=== PATIENT | male | born 1970 | race Caucasian/White ===

== ENCOUNTER 2022-06-17 18:19 | Emergency (ER) | payer SELFPAY ==
[2022-06-17] MEDS ORDERED: LACTATED RINGERS 1,000 ML IV STA (18:39)
--- NOTE | 2022-06-17 18:39 | ED General ---
General Stated Complaint: HEAD FOG,AMS History of Present Illness Date Seen by Provider: Jun 17, 2022 Time Seen by Provider: 18:39 Initial Comments 52-year-old male presents with what he is describing as "brain fog" patient reports that him and his son were driving home to [facility] from [facility]. They report that they left at their around 5 AM this morning and been driving all day. While he was driving he just "does not feel right" but cannot describe it more than just feels kind of brain foggy and fatigued. Heather ent denies any focal deficits. Patient denies any numbness tingling headache chest pain, shortness of breath, fever, chills, nausea, vomiting or any other systemic complaints other than he just kind of feels funny. He reports that he may just be overly tired with is concerned and wanted to be evaluated. Allergies and Home Medications Allergies Coded Allergies: No Known Drug Allergies (Unverified , 06/17/22) Patient Home Medication List Home Medication List Reviewed: Yes Review of Systems Review of Systems Constitutional: No chills, No dizziness, No fever; malaise, weakness EENTM: no symptoms reported; No ear pain Respiratory: No cough, No short of breath Cardiovascular: No chest pain, No palpitations Gastrointestinal: No abdominal pain, No diarrhea, No nausea, No vomiting Genitourinary: no symptoms reported Musculoskeletal: no symptoms reported Skin: no symptoms reported Psychiatric/Neurological: See HPI Hematologic/Lymphatic: No Symptoms Reported Immunological/Allergic: no symptoms reported Physical Exam Vital Signs Vital Signs - First Documented 06/17/22 18:34 Temp 37.0 Pulse 78 Resp 18 B/P (MAP) 147/89 (108) Pulse Ox 97 O2 Delivery Room Air Capillary Refill : Height, Weight, BMI Height: '" Weight: lbs. oz. 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 as Tested; No Abnormal Gait Skin: Normal Color, Warm/Dry Progress/Results/Core Measures Suspected Sepsis SIRS Temperature: Pulse: Respiratory Rate: Laboratory Tests 06/17/22 18:39: White Blood Count 11.2H Blood Pressure / Mean: Laboratory Tests 06/17/22 18:39: Creatinine 0.97, Platelet Count 266, Total Bilirubin < 0.2 Results/Orders Lab Results Laboratory Tests Test 06/17/22 18:37 06/17/22 18:39 06/17/22 18:47 06/17/22 19:20 Range/Units Glucometer 101 70-110 MG/DL White Blood Count 11.2 H 4.3-11.0 10^3/uL Red Blood Count 5.40 4.30-5.52 10^6/uL Hemoglobin 16.0 13.3-17.7 g/dL Hematocrit 46 40-54 % Mean Corpuscular Volume 86 80-99 fL Mean Corpuscular Hemoglobin 30 25-34 pg Mean Corpuscular Hemoglobin Concent 35 32-36 g/dL Red Cell Distribution Width 13.5 10.0-14.5 % Platelet Count 266 130-400 10^3/uL Mean Platelet Volume 9.1 9.0-12.2 fL Immature Granulocyte % (Auto) 0 % Neutrophils (%) (Auto) 62 42-75 % Lymphocytes (%) (Auto) 27 12-44 % Monocytes (%) (Auto) 6 0-12 % Eosinophils (%) (Auto) 4 0-10 % Basophils (%) (Auto) 0 0-10 % Neutrophils # (Auto) 7.0 1.8-7.8 10^3/uL Lymphocytes # (Auto) 3.1 1.0-4.0 10^3/uL Monocytes # (Auto) 0.7 0.0-1.0 10^3/uL Eosinophils # (Auto) 0.4 H 0.0-0.3 10^3/uL Basophils # (Auto) 0.1 0.0-0.1 10^3/uL Immature Granulocyte # (Auto) 0.1 0.0-0.1 10^3/uL Sodium Level 140 135-145 MMOL/L Potassium Level 5.9 H 3.6-5.0 MMOL/L Chloride Level 106 98-107 MMOL/L Carbon Dioxide Level 24 21-32 MMOL/L Anion Gap 10 5-14 MMOL/L Blood Urea Nitrogen 16 7-18 MG/DL Creatinine 0.97 0.60-1.30 MG/DL Estimat Glomerular Filtration Rate 95 BUN/Creatinine Ratio 16 Glucose Level 110 H 70-105 MG/DL Calcium Level 9.2 8.5-10.1 MG/DL Corrected Calcium 9.0 8.5-10.1 MG/DL Total Bilirubin < 0.2 0.1-1.0 MG/DL Aspartate Amino Transf (AST/SGOT) 33 5-34 U/L Alanine Aminotransferase (ALT/SGPT) 22 0-55 U/L Alkaline Phosphatase 81 40-136 U/L Troponin I < 0.30 <0.30 NG/ML C-Reactive Protein < 0.30 <0.50 MG/DL Total Protein 7.4 6.4-8.2 GM/DL Albumin 4.3 3.2-4.5 GM/DL SARS-CoV-2 RNA (RT-PCR) Not Detected Not Detecte Urine Color YELLOW Urine Clarity SLIGHTLY CLOUDY Urine pH 7.0 5-9 Urine Specific [place] 1.025 H 1.016-1.022 Urine Protein NEGATIVE NEGATIVE Urine Glucose (UA) NEGATIVE NEGATIVE Urine Ketones NEGATIVE NEGATIVE Urine Nitrite NEGATIVE NEGATIVE Urine Bilirubin NEGATIVE NEGATIVE Urine Urobilinogen 0.2 < = 1.0 MG/DL Urine Leukocyte Esterase NEGATIVE NEGATIVE Urine RBC (Auto) NEGATIVE NEGATIVE Urine RBC NONE /HPF Urine WBC 0-2 /HPF Urine Squamous Epithelial Cells NONE /HPF Urine Crystals NONE /LPF Urine Bacteria LARGE H /HPF Urine Casts NONE /LPF Urine Mucus LARGE H /LPF Urine Culture Indicated YES My Orders Orders - HWANG,JUAN L DO Cbc With Automated Diff (06/17/22 18:39) Comprehensive Metabolic Panel (06/17/22 18:39) Ua Culture If Indicated (06/17/22 18:39) Crp Fs (06/17/22 18:39) Troponin I Fs (06/17/22 18:39) Covid 19 Inhouse Test (06/17/22 18:39) Lactated Ringers (Lr 1000 Ml Iv Solution (06/17/22 18:39) Ed Iv/Invasive Line Start (06/17/22 18:39) Ekg Tracing (06/17/22 18:39) Monitor-Rhythm Ecg Trace Only (06/17/22 18:39) Urine Culture (06/17/22 19:20) Vital Signs/I&O 06/17/22 18:34 Temp 37.0 Pulse 78 Resp 18 B/P (MAP) 147/89 (108) Pulse Ox 97 O2 Delivery Room Air Capillary Refill : Progress Note : Progress Note Patient symptoms consists of "bad brain fog" patient had no other systemic complaints. Patient had no posterior calf pain or signs of a DVT from his travels. Patient was slightly tachycardic but otherwise normal physical exam and neuro exam. Patient had no significant findings on his labs. I did discuss lab findings with patient. Patient was offered a CT exam but declined. While discussing recommendations I thought he should go get some rest may be he just has some brain fog from a hard day traveling and eyestrain and that he may would benefit from standing for [place]. Especially in light of no previous known medical problems. Patient at that time stated that about 8 years ago he was told he had a "mass" behind his eye and that they want to do surgery but he declined and stated that it went away. Patient was once again offered a CT following that conversation and once again declined. I did recommend that he consider follow-up with his primary care provider once he got back to [facility] for further evaluation or he may stop at another hospital if he feels the symptoms worsen for further evaluation. He was stable and discharged home ECG Initial ECG Impression Date: Jun 17, 2022 Initial ECG Impression Time: 18:54 Initial ECG Rate: 98 Initial ECG Rhythm: Normal Sinus Initial ECG Intervals: Normal Initial ECG Impression: Normal Departure Impression Primary Impression: Malaise and fatigue Disposition: 01 HOME, SELF-CARE Condition: Stable Departure-Patient Inst. Referrals: NO,LOCAL PHYSICIAN (PCP/Family) Primary Care Physician Patient Instructions: Fatigue ED Add. Discharge Instructions: Please get plenty of rest this evening with plenty of fluids. I would recommend you consider staying in the area tonight and rest and continue your travels tomorrow. Return to the ER with any concerns. JUAN HWANG DO Jun 17, 2022 18:39
[2022-06-17 18:48] LABS: BASOPHILS # (AUTO) 0.1 10^3/uL (0.0-0.1); BASOPHILS % (AUTO) 0 % (0-10); EOSINOPHILS # (AUTO) 0.4 10^3/uL (0.0-0.3); EOSINOPHILS % (AUTO) 4 % (0-10); HEMATOCRIT 46 % (40-54); LYMPHOCYTES # (AUTO) 3.1 10^3/uL (1.0-4.0); LYMPHOCYTES % (AUTO) 27 % (12-44); MEAN CORPUSCULAR HEMOGLOBIN 30 pg (25-34); MEAN CORPUSCULAR HGB CONC 35 g/dL (32-36); MEAN CORPUSCULAR VOLUME 86 fL (80-99); MEAN PLATELET VOLUME 9.1 fL (9.0-12.2); MONOCYTES # (AUTO) 0.7 10^3/uL (0.0-1.0); MONOCYTES % (AUTO) 6 % (0-12); NEUTROPHILS % (AUTO) 62 % (42-75); PLATELET COUNT 266 10^3/uL (130-400); WHITE BLOOD COUNT 11.2 10^3/uL (4.3-11.0)
[2022-06-17 19:09] LABS: ALANINE AMINOTRANSFERASE 22 U/L (0-55); ALBUMIN 4.3 GM/DL (3.2-4.5); ALKALINE PHOSPHATASE 81 U/L (40-136); BILIRUBIN,TOTAL < 0.2 MG/DL (0.1-1.0); BUN/CREATININE RATIO 16; CALCIUM 9.2 MG/DL (8.5-10.1); CARBON DIOXIDE 24 MMOL/L (21-32); CHLORIDE 106 MMOL/L (98-107); CREATININE SERUM 0.97 MG/DL (0.60-1.30); GFR ESTIMATED 95; GLUCOSE 110 MG/DL (70-105); POTASSIUM 5.9 MMOL/L (3.6-5.0); SODIUM 140 MMOL/L (135-145); TOTAL PROTEIN 7.4 GM/DL (6.4-8.2)
[2022-06-17 19:26] LABS: BILIRUBIN,URINE NEGATIVE (NEGATIVE); COLOR,URINE YELLOW; GLUCOSE, URINE (UA) NEGATIVE (NEGATIVE); KETONES,URINE NEGATIVE (NEGATIVE); LEUKOCYTE ESTERASE ,URINE NEGATIVE (NEGATIVE); NITRITE,URINE NEGATIVE (NEGATIVE); PROTEIN,URINE NEGATIVE (NEGATIVE)
[2022-06-17 19:30] LABS: BACTERIA,URINE LARGE /HPF; CLARITY,URINE SLIGHTLY CLOUDY; WBC,URINE 0-2 /HPF
[2022-06-17 19:54] VITALS: BP 140/77
== END 2022-06-17 19:54 | disposition home or self-care (01) ==
LOC: ER FS 18:21
DX: R53.81 Other malaise (principal); R53.83 Other fatigue; R00.0 Tachycardia, unspecified; Z20.822 Contact with and (suspected) exposure to COVID-19
CPT/HCPCS: 36415; 80053; 81000; 82947; 84484; 85025; 86141; 87088; 87636; 93005; 93041